=== PATIENT | female | born 2000 | race Caucasian/White ===

== ENCOUNTER → 2020-04-06 | Outpatient (CLI) | payer BC | LOC: ZCOL.LAB 17:09 | DX: Z20.828 Contact with and (suspected) exposure to other viral communicable diseases (principal) ==

== ENCOUNTER → 2020-04-07 | Outpatient (CLI) | payer BC | LOC: ZLAB.KSTAT 12:48 | DX: Z20.828 Contact with and (suspected) exposure to other viral communicable diseases (principal) ==